=== PATIENT | male | born 1985 | race Caucasian/White ===

== ENCOUNTER 2018-12-22 00:13 | Emergency (ER) | payer SELFPAY ==
[~2018-12-22] VITALS: Ht 167.6 cm; Wt 65.3 kg
[2018-12-22 00:15] VITALS: BP 160/95
[2018-12-22] MEDS ORDERED: Bacitracin Oint 15gm Tube TOPIC SCH (00:15)
--- NOTE | 2018-12-22 00:15 | NUR ---
ED Nurse Note: Patient was BIB [employer] for medical clearance. Patient c/o right foot incision of unknown etiology. States was smoking connor meth when [employer] got him. HR 140, other VSS at this time, AAO 4, skin is warm to touch.
[2018-12-22] MEDS ORDERED: BUSPAR10 MG ORAL (00:18)
--- NOTE | 2018-12-22 00:22 | Emergency Room Report ---
History of Present Illness General Chief Complaint: Medical Clearance Source: Patient Present Illness HPI Disclaimer: Please note that this report is being documented using [employer] technology. This can lead to erroneous entry secondary to incorrect interpretation by the dictating instrument. HPI: 33-year-old male with history of schizophrenia, polysubstance abuse presents for evaluation of foot wounds prior to booking. The patient states he has had wounds over his feet and ankles over the past 2 weeks. Cannot recall inciting injury but does abuse methamphetamines and he says sometimes when he gets hyper excited he can pick at the skin. He walks long distances and states that sometimes he is barefoot. Let tetanus was recently updated when he got out of [facility] within the past month. Denies any bleeding or purulent drainage. Denies significant pain. Came in requesting evaluation of the wounds been present for several weeks. He admits to using methamphetamines prior to arrival and feels a rapid heart rate but denies any chest pain, shortness of breath, lightheadedness, headaches or any other changes in his health. PMH: Schizophrenia, polysubstance abuse PSH: Right ankle repair with hardware Allergies: Denies Social Hx: Methamphetamine abuse, tobacco use, alcohol use Allergies: Coded Allergies: No Known Allergies (Unverified , 12/22/18) Nursing Documentation-PMH Past Medical History: No History, Except For History Of Psychiatric Problem: Yes Review of Systems All Other Systems: negative except mentioned in HPI Physical Exam Vital Signs Date Time Temp Pulse Resp B/P (MAP) Pulse Ox O2 Delivery O2 Flow Rate FiO2 12/22/18 00:15 99.0 140 18 160/95 (116) 95 General: Awake and alert, no acute distress HEENT: NC/AT. EOMI. Cardiovascular: Tachycardic. S1 and S2 normal. No murmur appreciated Resp: Normal work of breathing. No cough, wheezing or crackles appreciated Skin: Multiple excoriations over the dorsum of the feet with a 5 cm healing wound below the lateral malleolus on the right foot. Scaling skin around it. No drainage, no surrounding erythema or edema. No bleeding, no drainage. Nontender to palpation. MSK: Normal tone and bulk. Moving all extremities. No obvious deformity. Neuro: Awake and alert. Mentating appropriately. Medical Decision Making Diagnostic Impression: Primary Impression: Wound of foot Additional Impression: Methamphetamine abuse ER Course 33-year-old male with history of schizophrenia and substance abuse presents for evaluation prior to booking. He is requesting evaluation of his foot wounds which have been present for several weeks but cannot recall an inciting injury. He does have skin picking behavior from his methamphetamine use and reports using methamphetamines prior to his arrest. He arrives tachycardic but denies any chest pain or shortness of breath. EKG was performed showing sinus tachycardia without ischemic changes. He was using crystal meth approximately 30 minutes ago during the course of his arrest. His symptoms will improve over time he has no chest pain is otherwise well-appearing. Will discharge to police custody. He can return to the emergency department for any new or worsening symptoms. Provided him resources to follow-up with for drug and alcohol abuse as well as wound care instructions. He understands and agrees with treatment plan will be discharged. EKG Diagnostic Results EKG Time: 00:28 Rate: tachycardiac Rhythm: NSR ST Segments: no acute changes Other Impression Sinus tachycardia, normal axis, normal intervals, no ST segment changes. Rhythm Strip Diag. Results Rhythm Strip Time: 00:28 EP Interpretation: yes Rate: 130s Rhythm: no PVC's, no ectopy Last Vital Signs Date Time Temp Pulse Resp B/P (MAP) Pulse Ox O2 Delivery O2 Flow Rate FiO2 12/22/18 00:15 99.0 140 18 160/95 (116) 95 Disposition: HOME, SELF-CARE Condition: Stable Scripts Bacitracin (BACITRAYCIN PLUS) 28 Gm Oint...g. 28 GM TP TID for 5 Days, GM Prov: Jarod Parish MD 12/22/18 Referrals: [facility]ousse[facility] Departure Forms: [facility] Clearance Patient Instructions: Dressing Change, Delayed Wound Closure Additional Instructions: Apply the medicated ointment to the wounds on the feet 3 times daily for the next week and keep covered with bandages. Do not scratch or pick at these wounds. In the future, refrain from using methamphetamines or any other illicit drugs as it can be harmful to your health and even fatal. Outpatient resources for drug and alcohol abuse have been included in your discharge paperwork. Return to the emergency department anytime with any new or worsening symptoms. Jarod Parish MD Dec 22, 2018 00:22
[2018-12-22 00:26] VITALS: BP 160/95
[2018-12-22] MEDS ORDERED: BACITRAYCIN PLU28 GM TP (00:27)
--- NOTE | 2018-12-22 00:34 | NUR ---
ED Nurse Note: Pt cleared by health care Provider for discharge. DC instructions/prescription was given and explained to pt and verbalized understanding of teachings. All medical deviecs such as ID band removed. Pt is AAO x4, ambulatory and left with all personal belongings.
--- NOTE | 2018-12-22 15:18 | Cardiology Report ---
APPROVED REPORT EKG Measurement Heart [id number] Sinus tachycardia Otherwise normal ECG
== END 2018-12-22 00:39 ==
LOC: EMR 00:35
DX: S91.301A Unspecified open wound, right foot, initial encounter (principal); F15.10 Other stimulant abuse, uncomplicated; F20.9 Schizophrenia, unspecified; R00.0 Tachycardia, unspecified; X58.XXXA Exposure to other specified factors, initial encounter; Y92.9 Unspecified place or not applicable
CPT/HCPCS: 93005; 99282